=== PATIENT | female | born 2000 | race Caucasian/White ===

== ENCOUNTER 2019-02-22 09:14 | Emergency (ER) | payer OTHER ==
[~2019-02-22] VITALS: Ht 160 cm; Wt 52.2 kg
== END 2019-02-22 12:50 | disposition home or self-care (01) ==
LOC: ER 09:14
DX: J03.80 Acute tonsillitis due to other specified organisms (principal)

== ENCOUNTER 2019-05-07 15:47 | Emergency (ER) | payer OTHER ==
[~2019-05-07] VITALS: Ht 160 cm; Wt 49.9 kg
== END 2019-05-07 20:06 | disposition home or self-care (01) ==
LOC: ER 15:47
DX: F41.8 Other specified anxiety disorders (principal); R07.89 Other chest pain; R42 Dizziness and giddiness

== ENCOUNTER → 2019-09-20 | Emergency (ER) | payer OTHER | END | disposition left against medical advice (07) | LOC: ER 12:47 | DX: Z53.20 Procedure and treatment not carried out because of patient's decision for unspecified reasons (principal) ==